=== PATIENT | male | born 1980 | race Caucasian/White ===

== ENCOUNTER 2019-06-20 14:28 | Emergency (ER) | payer SELFPAY ==
[~2019-06-20] VITALS: Ht 170.2 cm; Wt 95.3 kg
--- NOTE | 2019-06-20 14:44 | NUR ---
ED Nurse Note: Pt walked in from home c/o 01/05 pain in right hand d/t puncture wound from metal object. He pulled the object out at home. Pt has minimal active bleeding. Per pt, he may still have some metal left inside his hand. Respirations even and unlbored on room air. Vital signs stable as documented. Per pt, he has had a tetanus shot within the last 5 years.
[2019-06-20 14:52] VITALS: BP 154/96
[2019-06-20] MEDS ORDERED: Hydrogen Peroxide 473ml Bottle TOPIC ONE ×2 (14:54→15:30)
--- NOTE | 2019-06-20 15:10 | Emergency Room Report ---
History of Present Illness General Chief Complaint: Upper Extremity Injury Source: Patient Present Illness HPI 38-year-old male with no symptom past medical history here complaining of a puncture wound in his thenar side of right hand that started today. Patient reports that he was painting as a piece of metal went inside his right hand and punctured it patient took it out however believes that small piece of metal was left in there. Obvious puncture wound and swelling bleeding noted. However bleeding has subsided. Patient is up-to-date with tetanus shot. Denies all other associated symptoms, chest pain, shortness of breath, palpitation,. Has full range of motion of affected side. No motor or sensory deficits noted. Denies fever and chills at this time Allergies: Coded Allergies: No Known Allergies (Unverified , 06/20/19) Patient History Past Medical History: see triage record Past Surgical History: unable to obtain Pertinent Family History: none Immunizations: UTD Reviewed Nursing Documentation: PMH: Agreed; PSxH: Agreed Nursing Documentation-PMH Past Medical History: No Stated History Review of Systems All Other Systems: negative except mentioned in HPI Physical Exam Vital Signs Date Time Temp Pulse Resp B/P (MAP) Pulse Ox O2 Delivery O2 Flow Rate FiO2 06/20/19 14:31 98.1 75 18 154/96 (115) 97 Room Air Sp02 EP Interpretation: reviewed, normal General Appearance: no apparent distress, alert, GCS 15, non-toxic Head: normocephalic, atraumatic Eyes: bilateral eye normal inspection, bilateral eye PERRL ENT: hearing grossly normal, normal pharynx, no angioedema, normal voice Neck: full range of motion, supple/symm/no masses Respiratory: chest non-tender, lungs clear, normal breath sounds, no wheezing, speaking full sentences Cardiovascular #1: regular rate, rhythm, no edema, no murmur Cardiovascular #2: 2+ radial (R), 2+ radial (L) Gastrointestinal: normal bowel sounds, non tender, soft, non-distended, no guarding, no rebound Rectal: deferred Musculoskeletal: back normal, no calf tenderness, swelling - Right thenar hand with puncture wound Neurologic: alert, motor strength/tone normal, oriented x3, sensory intact, responsive, speech normal Psychiatric: judgement/insight normal, memory normal, mood/affect normal, no suicidal/homicidal ideation Skin: other - Puncture wound right hand Lymphatic: no adenopathy Medical Decision Making PA Attestation Diagnosis and treatment plans were reviewed and discussed with my supervising physician Dr. Polk Diagnostic Impression: Primary Impression: Puncture wound of hand with foreign body ER Course 38-year-old male with no symptom past medical history here complaining of a puncture wound in his thenar side of right hand that started today. Patient reports that he was painting as a piece of metal went inside his right hand and punctured it patient took it out however believes that small piece of metal was left in there. Obvious puncture wound and swelling bleeding noted. However bleeding has subsided. Patient is up-to-date with tetanus shot. Denies all other associated symptoms, chest pain, shortness of breath, palpitation,. Has full range of motion of affected side. No motor or sensory deficits noted. Denies fever and chills at this time Ddx considered but are not limited to : Cellulitis, puncture wound with foreign body, puncture wound without foreign body, superficial infection, abscess, tendon rupture Vital signs: are WNL, pt. is afebrile H&PE are most consistent with: Puncture wound of hand with foreign body ORDERS: Right hand x-ray, Keflex, Bactrim, ibuprofen ED INTERVENTIONS: Wound clean and dress DISCHARGE: At this time pt. is stable for d/c to home. Will provide printed patient care instructions, and any necessary prescriptions. Care plan and follow up instructions have been discussed with the patient prior to discharge. Patient to follow-up with a hand specialist in 24 to 48 hours. Take medication as directed, no motor or sensory deficits noted very low suspicion of tendon involvement. If worsening symptoms return to the emergency room. Obvious piece of metal noted which appears to be big), able to find his way out toward the surface. No small particles noted. Other X-Ray Diagnostic Results Other X-Ray Diagnostic Results : X-Ray ordered: Right hand x-ray # of Views/Limited Vs Complete: 3 View Indication: Pain EP Interpretation: Yes GOKUL Xray: Interpretation reviewed, by supervising MD, and agrees with findings. Interpretation: no dislocation, no fractures, other - Foreign body noted right thenar Impression: Other - puncture wound Electronically Signed by: Kaia Sheikh PA-C Last Vital Signs Date Time Temp Pulse Resp B/P (MAP) Pulse Ox O2 Delivery O2 Flow Rate FiO2 06/20/19 14:52 98.1 75 18 154/96 97 Room Air Disposition: HOME, SELF-CARE Condition: Stable Scripts Ibuprofen (Ibu) 800 Mg Tablet 800 MG PO TID, #30 TAB Prov: Kaia Cantu 06/20/19 Cephalexin* (KEFLEX*) 500 Mg Capsule 500 MG ORAL EVERY 6 HOURS for 10 Days, #40 CAP Prov: Kaia Cantu 06/20/19 Trimethoprim/Sulfamethoxazole 160/800* (BACTRIM DS TABLET*) 1 Each Tablet 1 TAB ORAL TWICE A DAY for 10 Days, #20 TAB Prov: Kaia Cantu 06/20/19 Patient Instructions: Puncture Wound Additional Instructions: Take medication as directed, follow-up with executive relations specialist and hand specialist, if worsening symptoms return to emergency room. Kaia Cantu Jun 20, 2019 15:10
[2019-06-20] MEDS ORDERED: IBU800 MG PO (15:12)
[2019-06-20] MEDS ORDERED: BACTRIM DS TAB1 EAC1 ORAL (15:12)
[2019-06-20] MEDS ORDERED: CEPHALEXIN500 MG ORAL (15:12)
--- NOTE | 2019-06-20 15:30 | NUR ---
ER DISCHARGE NOTE: Pt's hand irrigated and dressed. Patient is cleared to be discharged per ERMD, pt is aox4, on room air, with stable vital signs. pt was given dc and prescription instructions, pt was able to verbalize understanding, pt id band removed. pt is able to ambulate with steady gait. pt took all belongings.
[2019-06-20 15:43] VITALS: BP 119/78
--- NOTE | 2019-06-20 15:53 | Diagnostic Imaging Report ---
Indication: Right hand pain Findings: 3 views of the right hand were obtained. There is soft tissue swelling and air demonstrated. There is a metallic radiopaque foreign body between the thumb and the second digit near the metacarpal base. No acute fracture is identified. IMPRESSION: Soft tissue injury with radiopaque foreign body
== END 2019-06-20 15:35 | disposition home or self-care (01) ==
LOC: EMR 15:10
DX: S61.431A Puncture wound without foreign body of right hand, initial encounter (principal); X58.XXXA Exposure to other specified factors, initial encounter; Y92.9 Unspecified place or not applicable
CPT/HCPCS: 99283